=== PATIENT | male | born 1995 | race African-American/Black ===

== ENCOUNTER 2021-01-12 12:21 | Emergency (ER) | payer OTHER ==
[~2021-01-12] VITALS: Ht 157.5 cm; Wt 56.7 kg
[2021-01-12] MEDS ORDERED: ZYRTEC10 M3 PO (13:34)
[2021-01-12] MEDS ORDERED: FLUCONAZOLE150 MG PO (13:34)
[2021-01-12] MEDS ORDERED: TYLENOL325 M1 (13:40)
== END 2021-01-12 13:41 | disposition home or self-care (01) ==
LOC: ER 12:21
DX: R21 Rash and other nonspecific skin eruption (principal)